=== PATIENT | male | born 1950 | race Caucasian/White ===

== ENCOUNTER 2019-08-29 09:12 | Inpatient (IN) ==
[~2019-08-29 09:12] MED LIST: DEXTROSE 50% 25 GM/50 ML VIAL IV PRN; GLUCAGON 1 MG VIAL IM PRN; NITROGLYCERIN SL 0.4 MG TABLET SL PRN; PHYTONADIONE 10 MG/1 ML AMP SUBCUT ONE
[2019-08-29 10:06] LABS: Basophils # 0.1 10*3/uL (0.0-0.2); Basophils % 1.1 % (0.0-0.8); Eosinophils # 0.3 10*3/uL (0.0-0.87); Eosinophils % 4.4 % (0.00-10.9); Hematocrit 47.8 VOL% (42.0-52.0); Hemoglobin 15.8 GM/DL (14.0-18.0); Immature Granulocytes % 0.5 %; Immature Granulocytes Absolute 0.04 #; Lymphocytes # 1.6 10*3/uL (1.4-4.0); Lymphocytes % 21.3 % (21.2-54.2); Mean Corpuscular HGB Conc 33.1 GM/DL (32-36); Mean Corpuscular Volume 90.7 FL (87-102); Mean Platelet Volume 10.7 FL (9.6-12.0); Monocytes % 9.7 % (1.7-12.7); Platelet Count 158 T/CUMM (130-400); Red Blood Count 5.27 MC/CUMM (3.8-5.5); Red Cell Distribution Width 13.6 % (9.3-17.3); White Blood Count 7.5 T/CUMM (4-12)
[2019-08-29 10:20] LABS: PT Patient Result 11.1 SECS (9.6-12.2)
[2019-08-29] MEDS: glipiZIDE 10 MG TABLET PO SCH ×2 (10:26→20:49)
[2019-08-29] MEDS: POTASSIUM CHLORIDE 20 MEQ TABLET PO SCH (10:27)
[2019-08-29] MEDS ORDERED: ZALEPLON 5 MG CAPSULE PO PRN (10:30)
[2019-08-29 10:35] LABS: Albumin 3.7 G/DL (3.4-5.0); Bilirubin,Total 0.8 MG/DL (0.2-1.0); Calcium 8.7 MG/DL (8.5-10.1); Osmolality,Calculated 283.4 MOS/KG (273-304); Total Protein 6.9 G/DL (6.4-8.3)
[2019-08-29] MEDS: OMEGA 3 ACID ETHYL ESTERS 1 GM CAPSULE PO SCH ×2 (13:26→20:50)
[2019-08-29] MEDS: LOSARTAN 50 MG TABLET PO SCH (13:26)
[2019-08-29] MEDS: CHLORHEXIDINE 0.12% ORAL RINSE 60 ML BOTTLE SWISH/SPIT SCH ×2 (13:27→20:50)
[2019-08-29 15:18] LABS: ABG Base Excess 2.4 MMOL/L (-2.5-2.5); ABG HCO3 26.5 MMOL/L (20-26); ABG Oxygen Saturation 96.8 % (95-100); ABG PCO2 42.2 MM HG (35-48); ABG PH 7.418 (7.35-7.45); ABG PO2 83.4 MM HG (80-95); ABG TCO2 22.8 MMOL/L (23-27)
[2019-08-29] MEDS: CHLORHEXIDINE 4% SOLN 118 ML BOTTLE TOP SCH ×2 (15:44→20:14)
[2019-08-29] MEDS: SODIUM CHLORIDE 0.9% 1,000 ML IV SCH (18:39)
[2019-08-29] MEDS ORDERED: ASCORBIC ACID 500 MG TABLET PO SCH (19:00)
[2019-08-29] MEDS ORDERED: ATORVASTATIN 20 MG TABLET PO SCH (19:00)
[2019-08-29] MEDS ORDERED: INSULIN GLARGINE 100 UNIT/ML SUBCUT SCH (19:00)
[2019-08-29] MEDS ORDERED: AMIODARONE 200 MG TABLET PO SCH (19:00)
[2019-08-29] MEDS: carvediloL 6.25 MG TABLET PO SCH (20:50)
[2019-08-29] MEDS ORDERED: sitaGLIPtin 100 MG TABLET PO SCH (21:00)
[2019-08-30] MEDS: CHLORHEXIDINE 4% SOLN 118 ML BOTTLE TOP SCH (04:12)
[2019-08-30] MEDS ORDERED: PAPAVERINE 60 MG/2 ML VIAL ONE (04:23)
[2019-08-30] MEDS ORDERED: VANCOMYCIN 500 MG VIAL ONE (04:24)
[2019-08-30] MEDS ORDERED: VANCOMYCIN 1,000 MG VIAL ONE (04:24)
[2019-08-30] MEDS ORDERED: DEXTROSE 10% 250 ML BAG IV PRN (05:21)
[2019-08-30] MEDS ORDERED: CEFUROXIME 1,500 MG VIAL ONE (05:52)
[2019-08-30] MEDS ORDERED: CALCIUM CHLORIDE 1,000 MG/10 ML VIAL IV ONE (06:00)
[2019-08-30] MEDS ORDERED: FAMOTIDINE 20 MG TABLET PO ONE (06:00)
[2019-08-30] MEDS ORDERED: DIAZEPAM 5 MG TABLET PO ONE (06:00)
[2019-08-30] MEDS ORDERED: SUFentanil 250 MCG/5 ML AMP ONE ×2 (06:00)
[2019-08-30] MEDS ORDERED: AMINOCAPROIC ACID 5,000 MG/20 ML VIAL ONE (06:01)
[2019-08-30] MEDS ORDERED: MIDAZOLAM 10 MG/2 ML VIAL ONE (06:01)
[2019-08-30] MEDS ORDERED: CEFUROXIME INJ 1,500 MG in SYRINGE 1 EACH IV ONE (07:00)
[2019-08-30] MEDS ORDERED: NITROPRUSSIDE 50 MG/2 ML VIAL ONE (07:34)
[2019-08-30] MEDS ORDERED: SODIUM BICARBONATE 50 MEQ/50 ML VIAL IV ONE ×2 (07:34→10:55)
[2019-08-30] MEDS ORDERED: PHENYLEPHRINE DRIP 40 MG/250 ML PREMIX IV ONE (07:34)
[2019-08-30] MEDS ORDERED: POTASSIUM CHLORIDE RIDER 100 ML IV ONE (07:35)
[2019-08-30] MEDS ORDERED: CALCIUM CHLORIDE 1,000 MG/10 ML SYRINGE IV ONE (07:35)
[2019-08-30 07:45] LABS: ABG Base Excess 2.2 MMOL/L (-2.5-2.5); ABG HCO3 26.4 MMOL/L (20-26); ABG Oxygen Saturation 99.7 % (95-100); ABG PCO2 45.8 MM HG (35-48); ABG PH 7.392 (7.35-7.45); ABG TCO2 23.7 MMOL/L (23-27); Glucose Heart Surgery 89 MG/DL (74-106); Hematocrit Heart Surgery 46.3 PERCENT (42-52); Hemoglobin Heart Surgery 15.1 G/DL (14.0-18.0); Ionized Calcium Arterial 1.15 MMOL/L (1.21-1.46); PCO2 Patient Temp Arterial 45.8 MMHG; PH Patient Temp Arterial 7.392; Patient Temperature 37 CELCIUS; Potassium Heart/CVR 3.6 MMOL/L (3.5-5.1); Sodium Heart/CVR 139 MMOL/L (135-145)
[2019-08-30] MEDS: SODIUM CHLORIDE 0.9% 1,000 ML IV SCH (08:05)
[2019-08-30] MEDS: carvediloL 6.25 MG TABLET PO SCH (08:05)
[2019-08-30] MEDS: CHLORHEXIDINE 0.12% ORAL RINSE 60 ML BOTTLE SWISH/SPIT SCH ×2 (08:06→23:56)
[2019-08-30] MEDS: OMEGA 3 ACID ETHYL ESTERS 1 GM CAPSULE PO SCH (08:06)
[2019-08-30] MEDS: glipiZIDE 10 MG TABLET PO SCH (08:06)
[2019-08-30] MEDS: POTASSIUM CHLORIDE 20 MEQ TABLET PO SCH (08:06)
[2019-08-30] MEDS: LOSARTAN 50 MG TABLET PO SCH (08:06)
[2019-08-30] MEDS ORDERED: ALBUMIN 5% 12.5 GM/250 ML VIAL IV ONE (08:48)
[2019-08-30 09:01] LABS: Apearance,Urine CLEAR (Clear); Bacteria,Urine Occasional /HPF (Few); Bilirubin,Urine Negative (Negative); Blood, Urine Negative (Negative); Glucose,Urine (UA) Negative (Negative); Ketones,Urine Negative (Negative); Nitrite,Urine Negative (Negative); Protein,Urine Negative; RBC,Urine <1 /HPF (0-4); Urine Color Straw (Yellow); Urine Specific Gravity 1.009 (1.001-1.035); Urine Urobilinogen < 2.0 EU/DL (0.2-1.0); WBC,Urine <1 /HPF (0-6)
[2019-08-30] MEDS ORDERED: PHENYLEPHRINE DRIP 20 MG/250 ML PREMIX IV ONE (09:07)
[2019-08-30] MEDS ORDERED: HEPARIN/NACL 0.9% 2 UNITS/ML 500 ML IV ONE (09:07)
[2019-08-30] MEDS ORDERED: MINERAL OIL/PETROLATUM OPH OINT 3.5 GM TUBE ONE (09:08)
[2019-08-30] MEDS ORDERED: NITROGLYCERIN DRIP 50 MG/250 ML BOTTLE IV ONE ×2 (09:08→12:23)
[2019-08-30 09:17] LABS: Hematocrit Heart Surgery 33.5 PERCENT (42-52); Hemoglobin Heart Surgery 10.9 G/DL (14.0-18.0); PCO2 Patient Temp Venous 37.5 MM HG; PH Patient Temp Venous 7.451; PO2 Patient Temp Venous 42.8 MM HG; Potassium Heart/CVR 4.2 MMOL/L (3.5-5.1); VBG Base Excess 2.3 MEQ/L (0-4); VBG HCO3 26.2 MEQ/L (24-28); VBG PCO2 41.3 MMHG (41-51); VBG PH 7.422; VBG PO2 49.1 MMHG (17-40)
[2019-08-30 10:29] LABS: Hematocrit Heart Surgery 38.2 PERCENT (42-52); Hemoglobin Heart Surgery 12.4 G/DL (14.0-18.0); PCO2 Patient Temp Venous 34.7 MM HG; PH Patient Temp Venous 7.501; PO2 Patient Temp Venous 38.7 MM HG; Potassium Heart/CVR 4.4 MMOL/L (3.5-5.1); VBG Base Excess 4.1 MEQ/L (0-4); VBG HCO3 27.7 MEQ/L (24-28); VBG Oxygen Saturation 80.1 %; VBG PCO2 34.7 MMHG (41-51); VBG PH 7.501; VBG PO2 38.7 MMHG (17-40)
[2019-08-30 10:29] LABS: PCO2 Patient Temp Venous 32.7 MM HG; PH Patient Temp Venous 7.511; PO2 Patient Temp Venous 41.4 MM HG; Potassium Heart/CVR 4.1 MMOL/L (3.5-5.1); VBG Base Excess 3.5 MEQ/L (0-4); VBG HCO3 27.4 MEQ/L (24-28); VBG Oxygen Saturation 87.8 %; VBG PH 7.481; VBG PO2 47.6 MMHG (17-40)
[2019-08-30 10:54] LABS: ABG Base Excess 2.7 MMOL/L (-2.5-2.5); ABG HCO3 26.8 MMOL/L (20-26); ABG Oxygen Saturation 98.4 % (95-100); ABG PH 7.477 (7.35-7.45); ABG PO2 94.4 MM HG (80-95); ABG TCO2 22.8 MMOL/L (23-27); Glucose Heart Surgery 164 MG/DL (74-106); Hematocrit Heart Surgery 37.3 PERCENT (42-52); Hemoglobin Heart Surgery 12.1 G/DL (14.0-18.0); Ionized Calcium Arterial 1.18 MMOL/L (1.21-1.46); PH Patient Temp Arterial 7.477; PO2 Patient Temp Arterial 94.4 MM HG; Patient Temperature 37 CELCIUS; Potassium Heart/CVR 3.9 MMOL/L (3.5-5.1); Sodium Heart/CVR 137 MMOL/L (135-145)
[2019-08-30] MEDS ORDERED: DEXTROSE 5% KCL 20 MEQ 20 MEQ/1,000 ML BAG IV ONE (10:55)
[2019-08-30] MEDS ORDERED: LIDOCAINE 2% 5 ML VIAL ONE (10:55)
[2019-08-30] MEDS ORDERED: MANNITOL 100 GM/500 ML BAG IV ONE (10:55)
[2019-08-30] MEDS ORDERED: ALBUMIN 25% 25 GM/100 ML VIAL IV ONE (10:56)
[2019-08-30] MEDS ORDERED: MAGNESIUM SULFATE 5 GM/10 ML VIAL IV ONE (10:56)
[2019-08-30] MEDS ORDERED: HEPARIN 10,000 UNIT/10 ML VIAL ONE (10:56)
[2019-08-30] MEDS ORDERED: PROTAMINE SULFATE 50 MG/5 ML VIAL IV ONE ×2 (10:56→12:08)
[2019-08-30] MEDS ORDERED: FUROSEMIDE 20 MG/2 ML VIAL ONE (10:56)
[2019-08-30] MEDS ORDERED: methylPREDNISolone SOD SUC 1,000 MG/8 ML VIAL ONE (10:56)
[2019-08-30] MEDS ORDERED: PROTAMINE SULFATE 250 MG/25 ML VIAL IV ONE (10:56)
[2019-08-30] MEDS ORDERED: MIDAZOLAM 10 MG/2 ML VIAL IV PRN (12:06)
[2019-08-30] MEDS ORDERED: MAGNESIUM SULF RIDER 4 GM in PREMIX 1 EACH IV PRN (12:06)
[2019-08-30] MEDS ORDERED: NITROPRUSSIDE 100 MG in DEXTROSE 5% 250 ML IV PRN (12:06)
[2019-08-30] MEDS ORDERED: MORPHINE 10 MG/1 ML VIAL IV PRN (12:06)
[2019-08-30] MEDS ORDERED: VECURONIUM 10 MG VIAL IV PRN ×2 (12:06)
[2019-08-30] MEDS ORDERED: INSULIN REGULAR 100 UNIT/ML IV PRN (12:06)
[2019-08-30] MEDS ORDERED: ONDANSETRON 4 MG/2 ML VIAL IV PRN (12:06)
[2019-08-30] MEDS ORDERED: LACTATED RINGERS 250 ML IV PRN (12:06)
[2019-08-30] MEDS ORDERED: PHENYLEPHRINE DRIP 40 MG/250 ML PREMIX IV PRN (12:06)
[2019-08-30] MEDS ORDERED: MAGNESIUM SULF RIDER 2 GM in PREMIX 1 EACH IV PRN (12:06)
[2019-08-30] MEDS ORDERED: DEXTROSE 50% 25 GM/50 ML VIAL IV PRN (12:06)
[2019-08-30] MEDS ORDERED: ACETAMINOPHEN 650 MG SUPP RECTAL PRN (12:06)
[2019-08-30] MEDS ORDERED: DEXTROSE 10% 25 GM/250 ML BAG IV PRN (12:06)
[2019-08-30] MEDS ORDERED: SODIUM CHLORIDE 0.45% 1,000 ML IV SCH ×2 (12:06)
[2019-08-30] MEDS ORDERED: INSULIN REGULAR 100 UNIT/ML IV ONE (12:06)
[2019-08-30] MEDS ORDERED: CALCIUM CHLORIDE 1,000 MG/10 ML SYRINGE IV PRN (12:06)
[2019-08-30] MEDS ORDERED: INSULIN REGULAR DRIP 100 ML IV SCH (12:06)
[2019-08-30] MEDS ORDERED: MIDAZOLAM 2 MG/2 ML VIAL IV PRN (12:06)
[2019-08-30] MEDS ORDERED: ALBUTEROL/IPRATROPIUM 3 ML NEB RESP TX PRN (12:07)
[2019-08-30] MEDS ORDERED: ETOMIDATE 40 MG/20 ML VIAL IV ONE (12:11)
[2019-08-30] MEDS ORDERED: SEVOFLURANE 1 UNIT/15 MINUTE INH ONE (12:11)
[2019-08-30] MEDS ORDERED: SODIUM CHLORIDE 0.9% 100 ML IV ONE (12:12)
[2019-08-30] MEDS ORDERED: SODIUM CHLORIDE 0.9% 1,000 ML IV ONE (12:12)
[2019-08-30] MEDS ORDERED: SODIUM CHLORIDE 0.9% 250 ML IV ONE (12:12)
[2019-08-30] MEDS ORDERED: PHENYLEPHRINE 1 MG/10 ML SYRINGE IV ONE (12:12)
[2019-08-30 12:33] LABS: ABG Oxygen Saturation 96.2 % (95-100); ABG PCO2 36.7 MM HG (35-48); ABG PH 7.467 (7.35-7.45); ABG PO2 73.4 MM HG (80-95); ABG TCO2 23.3 MMOL/L (23-27); Glucose Heart Surgery 146 MG/DL (74-106); Hematocrit Heart Surgery 37.6 PERCENT (42-52); Hemoglobin Heart Surgery 12.2 G/DL (14.0-18.0); Potassium Heart/CVR 3.6 MMOL/L (3.5-5.1)
[2019-08-30] MEDS ORDERED: NITROGLYCERIN DRIP 50 MG/250 ML BOTTLE IV PRN ×2 (12:37→13:02)
[2019-08-30 12:38] LABS: Basophils % 0.4 % (0.0-0.8); Eosinophils # 0.1 10*3/uL (0.0-0.87); Eosinophils % 0.8 % (0.00-10.9); Hematocrit 34.8 VOL% (42.0-52.0); Hemoglobin 11.8 GM/DL (14.0-18.0); Immature Granulocytes % 0.7 %; Immature Granulocytes Absolute 0.06 #; Lymphocytes # 0.9 10*3/uL (1.4-4.0); Mean Corpuscular HGB Conc 33.9 GM/DL (32-36); Mean Corpuscular Volume 89.9 FL (87-102); Mean Platelet Volume 10.9 FL (9.6-12.0); Monocytes % 5.8 % (1.7-12.7); Neutrophils % 81.3 % (38.7-73.9); Platelet Count 151 T/CUMM (130-400); Red Blood Count 3.87 MC/CUMM (3.8-5.5); Red Cell Distribution Width 13.4 % (9.3-17.3); White Blood Count 8.4 T/CUMM (4-12)
[2019-08-30] MEDS: POTASSIUM CHLORIDE RIDER 20 MEQ in PREMIX 1 EACH IV PRN ×3 (12:47→22:30)
[2019-08-30 12:50] LABS: PT Patient Result 11.3 SECS (9.6-12.2); Partial Thromboplastin Time 25.8 SECS (20.8-36.0)
[2019-08-30 12:55] LABS: Albumin 3.4 G/DL (3.4-5.0); Bilirubin,Total 1.4 MG/DL (0.2-1.0); Calcium 8.9 MG/DL (8.5-10.1); Osmolality,Calculated 291.7 MOS/KG (273-304); Total Protein 5.8 G/DL (6.4-8.3)
[2019-08-30] MEDS: ALBUMIN 5% 12.5 GM in PREMIX 1 EACH IV PRN ×4 (13:22→18:35)
[2019-08-30] MEDS: KETOROLAC 30 MG/1 ML VIAL IV SCH ×3 (13:29→23:56)
[2019-08-30 13:51] LABS: ABG Base Excess 1.4 MMOL/L (-2.5-2.5); ABG HCO3 25.7 MMOL/L (20-26); ABG Oxygen Saturation 98.4 % (95-100); ABG PH 7.436 (7.35-7.45); ABG TCO2 22.5 MMOL/L (23-27); Glucose Heart Surgery 159 MG/DL (74-106); Hematocrit Heart Surgery 37.2 PERCENT (42-52); Hemoglobin Heart Surgery 12.1 G/DL (14.0-18.0); Potassium Heart/CVR 4.8 MMOL/L (3.5-5.1)
[2019-08-30] MEDS: LACTATED RINGERS 1,000 ML IV PRN ×3 (14:12→18:28)
[2019-08-30] MEDS: POTASSIUM CHLORIDE RIDER 10 MEQ in PREMIX 1 EACH IV PRN ×3 (14:13→23:30)
[2019-08-30] MEDS: ALBUTEROL/IPRATROPIUM 3 ML NEB RESP TX SCH ×3 (14:49→23:00)
[2019-08-30 15:56] LABS: ABG HCO3 24.4 MMOL/L (20-26); ABG PO2 95.5 MM HG (80-95); ABG TCO2 21.3 MMOL/L (23-27); Glucose Heart Surgery 178 MG/DL (74-106); Hematocrit Heart Surgery 34.7 PERCENT (42-52); Hemoglobin Heart Surgery 11.3 G/DL (14.0-18.0); Potassium Heart/CVR 3.7 MMOL/L (3.5-5.1)
[2019-08-30 16:17] LABS: CKMB % 5.7 %
[2019-08-30 16:19] LABS: Troponin I 2.59 NG/ML (0.00-0.045)
[2019-08-30] MEDS: MORPHINE 4 MG/1 ML VIAL IV PRN ×2 (17:21→21:01)
[2019-08-30 18:24] LABS: ABG Base Excess 0.4 MMOL/L (-2.5-2.5); ABG HCO3 24.7 MMOL/L (20-26); ABG PCO2 39.8 MM HG (35-48); ABG PH 7.406 (7.35-7.45); ABG PO2 76.8 MM HG (80-95); ABG TCO2 22.6 MMOL/L (23-27); Glucose Heart Surgery 141 MG/DL (74-106); Hematocrit Heart Surgery 31.9 PERCENT (42-52); Hemoglobin Heart Surgery 10.3 G/DL (14.0-18.0); Potassium Heart/CVR 4.4 MMOL/L (3.5-5.1)
[2019-08-30] MEDS: hydrALAZINE 20 MG/1 ML VIAL IV PRN (18:25)
[2019-08-30] MEDS: CEFUROXIME INJ 1,500 MG in SYRINGE 1 EACH IV SCH (19:41)
[2019-08-30 20:56] LABS: ABG Base Excess -0.1 MMOL/L (-2.5-2.5); ABG HCO3 24.4 MMOL/L (20-26); ABG PH 7.384 (7.35-7.45); ABG PO2 85.9 MM HG (80-95); ABG TCO2 22.6 MMOL/L (23-27); Glucose Heart Surgery 142 MG/DL (74-106); Hematocrit Heart Surgery 33.1 PERCENT (42-52); Hemoglobin Heart Surgery 10.7 G/DL (14.0-18.0); Potassium Heart/CVR 3.7 MMOL/L (3.5-5.1)
[2019-08-30 21:45] LABS: Troponin I 3.23 NG/ML (0.00-0.045)
[2019-08-30 22:17] LABS: ABG Base Excess 0.5 MMOL/L (-2.5-2.5); ABG HCO3 24.8 MMOL/L (20-26); ABG Oxygen Saturation 94.7 % (95-100); ABG PCO2 42.9 MM HG (35-48); ABG PH 7.384 (7.35-7.45); ABG PO2 71.3 MM HG (80-95); ABG TCO2 23.1 MMOL/L (23-27); Glucose Heart Surgery 140 MG/DL (74-106); Hematocrit Heart Surgery 33.3 PERCENT (42-52); Hemoglobin Heart Surgery 10.8 G/DL (14.0-18.0); Potassium Heart/CVR 3.7 MMOL/L (3.5-5.1)
[2019-08-31] MEDS: ALBUTEROL/IPRATROPIUM 3 ML NEB RESP TX SCH ×2 (03:30→08:09)
[2019-08-31 04:25] LABS: ABG Base Excess 0.1 MMOL/L (-2.5-2.5); ABG HCO3 24.4 MMOL/L (20-26); ABG Oxygen Saturation 94.6 % (95-100); ABG PCO2 41.8 MM HG (35-48); ABG PH 7.387 (7.35-7.45); ABG PO2 70.1 MM HG (80-95); ABG TCO2 22.6 MMOL/L (23-27); Basophils % 0.1 % (0.0-0.8); Glucose Heart Surgery 104 MG/DL (74-106); Hematocrit 32.2 VOL% (42.0-52.0); Hematocrit Heart Surgery 33.6 PERCENT (42-52); Hemoglobin 10.7 GM/DL (14.0-18.0); Hemoglobin Heart Surgery 10.9 G/DL (14.0-18.0); Immature Granulocytes % 0.4 %; Immature Granulocytes Absolute 0.06 #; Lymphocytes # 0.9 10*3/uL (1.4-4.0); Lymphocytes % 6.3 % (21.2-54.2); Mean Corpuscular HGB Conc 33.2 GM/DL (32-36); Mean Corpuscular Volume 92.5 FL (87-102); Mean Platelet Volume 11.2 FL (9.6-12.0); Monocytes % 4.7 % (1.7-12.7); Neutrophils % 88.5 % (38.7-73.9); Platelet Count 134 T/CUMM (130-400); Potassium Heart/CVR 4.2 MMOL/L (3.5-5.1); Red Blood Count 3.48 MC/CUMM (3.8-5.5); Red Cell Distribution Width 13.9 % (9.3-17.3); White Blood Count 14.3 T/CUMM (4-12)
[2019-08-31 04:48] LABS: Albumin 3.7 G/DL (3.4-5.0); Bilirubin,Direct 0.34 MG/DL (0.0-0.20); Bilirubin,Total 0.9 MG/DL (0.2-1.0); Osmolality,Calculated 285.1 MOS/KG (273-304); Total Protein 6.2 G/DL (6.4-8.3)
[2019-08-31 05:00] LABS: CKMB % 8.5 %
[2019-08-31 05:02] LABS: Troponin I 3.42 NG/ML (0.00-0.045)
[2019-08-31] MEDS: KETOROLAC 30 MG/1 ML VIAL IV SCH ×3 (05:11→17:10)
[2019-08-31] MEDS: POTASSIUM CHLORIDE RIDER 20 MEQ in PREMIX 1 EACH IV PRN (05:12)
[2019-08-31] MEDS: LACTATED RINGERS 1,000 ML IV PRN (06:09)
[2019-08-31] MEDS: hydrALAZINE 20 MG/1 ML VIAL IV PRN ×2 (06:43→07:49)
[2019-08-31] MEDS ORDERED: GLUCAGON 1 MG VIAL IM PRN (06:54)
[2019-08-31] MEDS ORDERED: FUROSEMIDE 40 MG/4 ML VIAL IV ONE (07:01)
[2019-08-31] MEDS: CEFUROXIME INJ 1,500 MG in SYRINGE 1 EACH IV SCH (07:11)
[2019-08-31] MEDS: CHLORHEXIDINE 0.12% ORAL RINSE 60 ML BOTTLE SWISH/SPIT SCH (08:11)
[2019-08-31] MEDS ORDERED: PHYTONADIONE 10 MG/1 ML AMP SUBCUT ONE (09:33)
[2019-08-31] MEDS ORDERED: INSULIN REGULAR 100 UNIT/ML SUBCUT SCH (10:00)
[2019-08-31] MEDS: INSULIN REGULAR 100 UNIT/ML SUBCUT PRN ×3 (12:18→21:27)
[2019-08-31] MEDS ORDERED: ALUMINUM/MAGNES/SIMETH MAX STR 30 ML UDCUP PO PRN (12:20)
[2019-08-31] MEDS ORDERED: ATORVASTATIN 20 MG TABLET PO SCH (19:00)
[2019-08-31] MEDS ORDERED: AMIODARONE 200 MG TABLET PO SCH (19:00)
[2019-08-31] MEDS ORDERED: ASCORBIC ACID 500 MG TABLET PO SCH (19:00)
[2019-08-31] MEDS ORDERED: INSULIN GLARGINE 100 UNIT/ML SUBCUT SCH (19:00)
[2019-08-31] MEDS: ASPIRIN 325 MG TABLET PO SCH (20:54)
[2019-08-31] MEDS: sitaGLIPtin 100 MG TABLET PO SCH (20:55)
[2019-08-31] MEDS: metFORMIN 500 MG TABLET PO SCH (20:55)
[2019-08-31] MEDS: AMIODARONE 200 MG TABLET PO SCH (20:55)
[2019-08-31] MEDS: OMEGA 3 ACID ETHYL ESTERS 1 GM CAPSULE PO SCH (20:55)
[2019-08-31] MEDS: glipiZIDE 10 MG TABLET PO SCH (20:55)
[2019-08-31] MEDS: carvediloL 6.25 MG TABLET PO SCH (20:56)
[2019-09-01] MEDS ORDERED: FUROSEMIDE 40 MG/4 ML VIAL IV ONE (05:11)
[2019-09-01 08:36] LABS: Basophils % 0.1 % (0.0-0.8); Hematocrit 32.8 VOL% (42.0-52.0); Hemoglobin 10.4 GM/DL (14.0-18.0); Immature Granulocytes % 1.2 %; Immature Granulocytes Absolute 0.21 #; Lymphocytes # 0.8 10*3/uL (1.4-4.0); Lymphocytes % 4.6 % (21.2-54.2); Mean Corpuscular HGB Conc 31.7 GM/DL (32-36); Mean Corpuscular Volume 95.1 FL (87-102); Mean Platelet Volume 11.5 FL (9.6-12.0); Monocytes % 8.9 % (1.7-12.7); Neutrophils % 85.2 % (38.7-73.9); Platelet Count 131 T/CUMM (130-400); Red Blood Count 3.45 MC/CUMM (3.8-5.5); Red Cell Distribution Width 14.5 % (9.3-17.3)
[2019-09-01 08:48] LABS: Albumin 3.2 G/DL (3.4-5.0); Bilirubin,Direct 0.21 MG/DL (0.0-0.20); Bilirubin,Total 1.3 MG/DL (0.2-1.0); Calcium 7.2 MG/DL (8.5-10.1); Osmolality,Calculated 297.1 MOS/KG (273-304); Total Protein 5.7 G/DL (6.4-8.3)
[2019-09-01 08:56] LABS: Band Neutrophils 7 % (0-10); Lymphocytes 6 % (20-55); Platelet Estimate Adequate; Segmented Neutrophils 83 % (50-85); Total Cells Counted 100
[2019-09-01 08:57] LABS: Anisocytosis Slight; Macrocytosis Slight
[2019-09-01] MEDS: INSULIN REGULAR 100 UNIT/ML SUBCUT PRN ×2 (09:27→13:09)
[2019-09-01] MEDS: OMEGA 3 ACID ETHYL ESTERS 1 GM CAPSULE PO SCH ×2 (09:44→21:50)
[2019-09-01] MEDS: LOSARTAN 50 MG TABLET PO SCH (09:44)
[2019-09-01] MEDS: DOCUSATE SODIUM 100 MG CAPSULE PO SCH (09:44)
[2019-09-01] MEDS: carvediloL 6.25 MG TABLET PO SCH ×2 (09:44→21:51)
[2019-09-01] MEDS: glipiZIDE 10 MG TABLET PO SCH ×2 (09:44→21:50)
[2019-09-01] MEDS: metFORMIN 500 MG TABLET PO SCH ×2 (09:44→21:51)
[2019-09-01] MEDS: ASCORBIC ACID 500 MG TABLET PO SCH (21:50)
[2019-09-01] MEDS: ASPIRIN 325 MG TABLET PO SCH (21:50)
[2019-09-01] MEDS: sitaGLIPtin 100 MG TABLET PO SCH (21:51)
[2019-09-01] MEDS: AMIODARONE 200 MG TABLET PO SCH (21:51)
[2019-09-01] MEDS: ATORVASTATIN 20 MG TABLET PO SCH (21:51)
[2019-09-01] MEDS: INSULIN GLARGINE 100 UNIT/ML SUBCUT SCH (21:53)
[2019-09-01] MEDS: INSULIN REGULAR 100 UNIT/ML SUBCUT SCH (21:54)
[2019-09-02] MEDS: INSULIN REGULAR 100 UNIT/ML SUBCUT SCH ×5 (08:10→21:20)
[2019-09-02] MEDS: DOCUSATE SODIUM 100 MG CAPSULE PO SCH ×2 (08:50→08:59)
[2019-09-02] MEDS: carvediloL 6.25 MG TABLET PO SCH ×3 (08:50→21:16)
[2019-09-02] MEDS: glipiZIDE 10 MG TABLET PO SCH ×3 (08:51→21:20)
[2019-09-02] MEDS: OMEGA 3 ACID ETHYL ESTERS 1 GM CAPSULE PO SCH ×3 (08:51→21:16)
[2019-09-02] MEDS: metFORMIN 500 MG TABLET PO SCH ×3 (08:51→21:19)
[2019-09-02] MEDS: LOSARTAN 50 MG TABLET PO SCH ×2 (08:51→08:59)
[2019-09-02] MEDS ORDERED: GLUCAGON 1 MG VIAL ONE (13:36)
[2019-09-02] MEDS ORDERED: GLUCAGON 1 MG VIAL IV PRN (13:51)
[2019-09-02] MEDS: ATORVASTATIN 20 MG TABLET PO SCH (21:17)
[2019-09-02] MEDS: ASCORBIC ACID 500 MG TABLET PO SCH (21:17)
[2019-09-02] MEDS: AMIODARONE 200 MG TABLET PO SCH (21:17)
[2019-09-02] MEDS: ASPIRIN 325 MG TABLET PO SCH (21:17)
[2019-09-02] MEDS: INSULIN GLARGINE 100 UNIT/ML SUBCUT SCH (21:20)
[2019-09-02] MEDS: sitaGLIPtin 100 MG TABLET PO SCH (21:20)
[2019-09-03] MEDS: INSULIN REGULAR 100 UNIT/ML SUBCUT SCH (07:59)
[2019-09-03 08:02] VITALS: BP 147/77
[2019-09-03] MEDS: DOCUSATE SODIUM 100 MG CAPSULE PO SCH (09:47)
[2019-09-03] MEDS: LOSARTAN 50 MG TABLET PO SCH (09:47)
[2019-09-03] MEDS: carvediloL 6.25 MG TABLET PO SCH (09:47)
[2019-09-03] MEDS: metFORMIN 500 MG TABLET PO SCH (09:47)
[2019-09-03] MEDS: OMEGA 3 ACID ETHYL ESTERS 1 GM CAPSULE PO SCH (09:47)
[2019-09-03] MEDS: glipiZIDE 10 MG TABLET PO SCH (09:47)
== END 2019-09-03 11:45 | disposition home or self-care (01) | DRG 236 ==
LOC: INTOOBSV 09:12 → N.4E 09:12 → N.CVR 08-30 11:40 → N.TELES 08-31 10:45

== ENCOUNTER 2019-10-07 06:12 | Inpatient (IN) ==
[2019-10-07] MEDS ORDERED: FUROSEMIDE 100 MG/10 ML VIAL ONE (06:26)
[2019-10-07] MEDS ORDERED: NITROGLYCERIN SL 0.4 MG TABLET SL ONE (06:27)
[2019-10-07] MEDS ORDERED: FUROSEMIDE 100 MG/10 ML VIAL IV STA (06:30)
[2019-10-07] MEDS ORDERED: NITROGLYCERIN SL 0.4 MG TABLET SL STA (06:31)
[2019-10-07 06:38] LABS: ABG HCO3 25.1 MMOL/L (20-26); ABG Oxygen Saturation 89.9 % (95-100); ABG PCO2 47.1 MM HG (35-48); ABG PH 7.344 (7.35-7.45); ABG PO2 60.8 MM HG (80-95); ABG TCO2 26.5 MMOL/L (23-27)
[2019-10-07] MEDS: niCARdipine INJ 25 MG in SODIUM CHLORIDE 0.9% 240 ML IV SCH (06:39)
[2019-10-07 06:45] LABS: Basophils # 0.1 10*3/uL (0.0-0.2); Basophils % 0.5 % (0.0-0.8); Eosinophils # 0.6 10*3/uL (0.0-0.87); Eosinophils % 3.8 % (0.00-10.9); Hematocrit 40.2 VOL% (42.0-52.0); Hemoglobin 12.6 GM/DL (14.0-18.0); Immature Granulocytes % 0.6 %; Immature Granulocytes Absolute 0.09 #; Lymphocytes # 2.6 10*3/uL (1.4-4.0); Lymphocytes % 17.6 % (21.2-54.2); Mean Corpuscular HGB Conc 31.3 GM/DL (32-36); Mean Corpuscular Volume 86.3 FL (87-102); Mean Platelet Volume 10.4 FL (9.6-12.0); Monocytes % 7.2 % (1.7-12.7); Neutrophils % 70.3 % (38.7-73.9); Platelet Count 283 T/CUMM (130-400); Red Blood Count 4.66 MC/CUMM (3.8-5.5); Red Cell Distribution Width 14.1 % (9.3-17.3); White Blood Count 14.7 T/CUMM (4-12)
[2019-10-07 07:12] LABS: Albumin 3.6 G/DL (3.4-5.0); Calcium 8.7 MG/DL (8.5-10.1); Osmolality,Calculated 284.1 MOS/KG (273-304); Total Protein 7.4 G/DL (6.4-8.3)
[2019-10-07 07:15] LABS: Apearance,Urine CLEAR (Clear); Bilirubin,Urine Negative (Negative); Blood, Urine Negative (Negative); Glucose,Urine (UA) 50 mg/dL (Negative); Ketones,Urine Negative (Negative); Nitrite,Urine Negative (Negative); Protein,Urine Negative; RBC,Urine 1 /HPF (0-4); Urine Color Straw (Yellow); Urine Specific Gravity 1.009 (1.001-1.035); Urine Urobilinogen < 2.0 EU/DL (0.2-1.0); WBC,Urine 1 /HPF (0-6)
[2019-10-07 07:22] LABS: INR 4.1
[2019-10-07 07:26] LABS: PT Patient Result 43.9 SECS (9.6-12.2)
[2019-10-07] MEDS ORDERED: MAGNESIUM SULF RIDER 2 GM in PREMIX 1 EACH IV PRN (08:14)
[2019-10-07] MEDS ORDERED: DEXTROSE 10% 25 GM/250 ML BAG IV PRN (08:14)
[2019-10-07] MEDS ORDERED: GLUCAGON 1 MG VIAL IM PRN (08:14)
[2019-10-07] MEDS ORDERED: MORPHINE 4 MG/1 ML VIAL IV PRN (08:14)
[2019-10-07] MEDS ORDERED: ONDANSETRON 4 MG/2 ML VIAL IV PRN (08:14)
[2019-10-07] MEDS ORDERED: MAGNESIUM SULF RIDER 4 GM in PREMIX 1 EACH IV PRN (08:14)
[2019-10-07] MEDS ORDERED: ACETAMINOPHEN 325 MG TABLET PO PRN (08:14)
[2019-10-07] MEDS ORDERED: NICOTINE 21 MG/24 HR PATCH TRANSDERM PRN (08:14)
[2019-10-07] MEDS ORDERED: ALBUTEROL 2.5 MG/3 ML NEB RESP TX PRN (08:14)
[2019-10-07] MEDS: PANTOPRAZOLE 40 MG TABLET PO SCH (09:34)
[2019-10-07] MEDS: INSULIN LISPRO 100 UNIT/ML SUBCUT SCH ×3 (12:27→21:57)
[2019-10-07] MEDS: LOSARTAN 50 MG TABLET PO SCH (12:54)
[2019-10-07] MEDS: POTASSIUM CHLORIDE 20 MEQ TABLET PO PRN ×2 (12:55→15:31)
[2019-10-07] MEDS ORDERED: AZITHROMYCIN INJ 500 MG in SODIUM CHLORIDE 0.9% 250 ML IV SCH (14:30)
[2019-10-07] MEDS ORDERED: cefTRIAXone 1,000 MG in SYRINGE 1 EACH IV SCH (14:30)
[2019-10-07] MEDS: FUROSEMIDE 40 MG/4 ML VIAL IV SCH (15:31)
[2019-10-07] MEDS ORDERED: WARFARIN 4 MG TABLET PO SCH (18:00)
[2019-10-07] MEDS ORDERED: AMIODARONE 200 MG TABLET PO SCH (21:00)
[2019-10-07] MEDS: ATORVASTATIN 40 MG TABLET PO SCH (21:55)
[2019-10-07] MEDS: carvediloL 12.5 MG TABLET PO SCH (21:56)
[2019-10-07] MEDS: ASCORBIC ACID 500 MG TABLET PO SCH (21:56)
[2019-10-08 04:14] LABS: Allen Test Positive; Pt O2 Delivery Device Other
[2019-10-08 04:15] LABS: ABG Base Excess 7.3 MMOL/L (-2.5-2.5); ABG HCO3 31.1 MMOL/L (20-26); ABG Oxygen Saturation 98.4 % (95-100); ABG PCO2 47.1 MM HG (35-48); ABG PH 7.447 (7.35-7.45)
[2019-10-08 04:41] LABS: Basophils % 0.3 % (0.0-0.8); Eosinophils # 0.3 10*3/uL (0.0-0.87); Eosinophils % 2.3 % (0.00-10.9); Hematocrit 33.9 VOL% (42.0-52.0); Hemoglobin 10.7 GM/DL (14.0-18.0); Immature Granulocytes % 0.4 %; Immature Granulocytes Absolute 0.05 #; Lymphocytes # 1.8 10*3/uL (1.4-4.0); Lymphocytes % 15.4 % (21.2-54.2); Mean Corpuscular HGB Conc 31.6 GM/DL (32-36); Mean Corpuscular Volume 84.3 FL (87-102); Mean Platelet Volume 10.8 FL (9.6-12.0); Monocytes % 9.8 % (1.7-12.7); Neutrophils % 71.8 % (38.7-73.9); Platelet Count 228 T/CUMM (130-400); Red Blood Count 4.02 MC/CUMM (3.8-5.5); Red Cell Distribution Width 14.4 % (9.3-17.3); White Blood Count 11.5 T/CUMM (4-12)
[2019-10-08 05:00] LABS: INR 2.6
[2019-10-08 05:06] LABS: PT Patient Result 28.4 SECS (9.6-12.2)
[2019-10-08 05:23] LABS: Bilirubin,Total 1.2 MG/DL (0.2-1.0); Calcium 8.1 MG/DL (8.5-10.1); Osmolality,Calculated 283.8 MOS/KG (273-304); Thyroid Stimulating Hormone 1.01 uIU/ml (0.358-3.74); Total Protein 6.4 G/DL (6.4-8.3)
[2019-10-08] MEDS: POTASSIUM CHLORIDE 20 MEQ TABLET PO PRN ×4 (06:35→14:41)
[2019-10-08] MEDS: INSULIN LISPRO 100 UNIT/ML SUBCUT SCH ×4 (07:36→22:24)
[2019-10-08] MEDS: niCARdipine INJ 25 MG in SODIUM CHLORIDE 0.9% 240 ML IV SCH (07:36)
[2019-10-08] MEDS: carvediloL 12.5 MG TABLET PO SCH (08:51)
[2019-10-08] MEDS: LEVOFLOXACIN 750 MG TABLET PO SCH (08:51)
[2019-10-08] MEDS: PANTOPRAZOLE 40 MG TABLET PO SCH (08:51)
[2019-10-08] MEDS: ASCORBIC ACID 500 MG TABLET PO SCH ×2 (08:51→22:36)
[2019-10-08] MEDS: FUROSEMIDE 40 MG/4 ML VIAL IV SCH (08:52)
[2019-10-08] MEDS: LOSARTAN 50 MG TABLET PO SCH (08:52)
[2019-10-08] MEDS ORDERED: FUROSEMIDE 100 MG/10 ML VIAL IV SCH (09:00)
[2019-10-08] MEDS ORDERED: FUROSEMIDE 20 MG/2 ML VIAL IV ONE (10:48)
[2019-10-08] MEDS: METOPROLOL TARTRATE 50 MG TABLET PO SCH ×2 (11:29→22:36)
[2019-10-08] MEDS ORDERED: WARFARIN 3 MG TABLET PO SCH (18:00)
[2019-10-08] MEDS: ATORVASTATIN 40 MG TABLET PO SCH (22:37)
[2019-10-09 04:54] LABS: Basophils % 0.4 % (0.0-0.8); Eosinophils # 0.4 10*3/uL (0.0-0.87); Eosinophils % 3.9 % (0.00-10.9); Hematocrit 35.4 VOL% (42.0-52.0); Hemoglobin 11.4 GM/DL (14.0-18.0); Immature Granulocytes % 0.5 %; Immature Granulocytes Absolute 0.05 #; Lymphocytes # 1.7 10*3/uL (1.4-4.0); Lymphocytes % 16.1 % (21.2-54.2); Mean Corpuscular HGB Conc 32.2 GM/DL (32-36); Mean Corpuscular Volume 84.1 FL (87-102); Mean Platelet Volume 10.7 FL (9.6-12.0); Monocytes % 9.9 % (1.7-12.7); Neutrophils % 69.2 % (38.7-73.9); Platelet Count 251 T/CUMM (130-400); Red Blood Count 4.21 MC/CUMM (3.8-5.5); Red Cell Distribution Width 14.5 % (9.3-17.3); White Blood Count 10.6 T/CUMM (4-12)
[2019-10-09 05:01] LABS: INR 2.4
[2019-10-09 05:22] LABS: PT Patient Result 26.2 SECS (9.6-12.2)
[2019-10-09 05:28] LABS: Albumin 2.9 G/DL (3.4-5.0); Calcium 8.6 MG/DL (8.5-10.1); Osmolality,Calculated 283.3 MOS/KG (273-304); Total Protein 6.3 G/DL (6.4-8.3)
[2019-10-09] MEDS: niCARdipine INJ 25 MG in SODIUM CHLORIDE 0.9% 240 ML IV SCH (07:18)
[2019-10-09] MEDS: LEVOFLOXACIN 750 MG TABLET PO SCH (08:31)
[2019-10-09] MEDS: ASCORBIC ACID 500 MG TABLET PO SCH ×2 (08:31→21:42)
[2019-10-09] MEDS: FUROSEMIDE 100 MG/10 ML VIAL IV SCH (08:31)
[2019-10-09] MEDS: METOPROLOL TARTRATE 50 MG TABLET PO SCH ×2 (08:31→21:41)
[2019-10-09] MEDS: PANTOPRAZOLE 40 MG TABLET PO SCH (08:32)
[2019-10-09] MEDS: INSULIN LISPRO 100 UNIT/ML SUBCUT SCH ×5 (08:32→21:42)
[2019-10-09] MEDS: LOSARTAN 50 MG TABLET PO SCH (08:32)
[2019-10-09] MEDS: POTASSIUM CHLORIDE 20 MEQ TABLET PO PRN ×2 (08:32→11:33)
[2019-10-09] MEDS ORDERED: AZITHROMYCIN 250 MG TABLET PO SCH (09:00)
[2019-10-09] MEDS: ATORVASTATIN 40 MG TABLET PO SCH (21:41)
[2019-10-10 07:02] LABS: Basophils # 0.1 10*3/uL (0.0-0.2); Basophils % 0.6 % (0.0-0.8); Eosinophils # 0.4 10*3/uL (0.0-0.87); Hematocrit 36.9 VOL% (42.0-52.0); Hemoglobin 11.6 GM/DL (14.0-18.0); Immature Granulocytes % 0.6 %; Immature Granulocytes Absolute 0.05 #; Lymphocytes # 1.6 10*3/uL (1.4-4.0); Lymphocytes % 17.6 % (21.2-54.2); Mean Corpuscular HGB Conc 31.4 GM/DL (32-36); Mean Corpuscular Volume 84.2 FL (87-102); Mean Platelet Volume 10.5 FL (9.6-12.0); Monocytes % 10.1 % (1.7-12.7); Neutrophils % 66.1 % (38.7-73.9); Platelet Count 240 T/CUMM (130-400); Red Blood Count 4.38 MC/CUMM (3.8-5.5); Red Cell Distribution Width 14.6 % (9.3-17.3); White Blood Count 8.8 T/CUMM (4-12)
[2019-10-10 07:13] LABS: INR 2.7
[2019-10-10 07:15] LABS: PT Patient Result 29.1 SECS (9.6-12.2)
[2019-10-10 07:26] LABS: Albumin 2.9 G/DL (3.4-5.0); Bilirubin,Total 1.6 MG/DL (0.2-1.0); Calcium 8.9 MG/DL (8.5-10.1); Osmolality,Calculated 286.1 MOS/KG (273-304); Total Protein 6.3 G/DL (6.4-8.3)
[2019-10-10] MEDS: niCARdipine INJ 25 MG in SODIUM CHLORIDE 0.9% 240 ML IV SCH (07:35)
[2019-10-10] MEDS: INSULIN LISPRO 100 UNIT/ML SUBCUT SCH ×2 (07:36→14:05)
[2019-10-10] MEDS: FUROSEMIDE 100 MG/10 ML VIAL IV SCH (08:24)
[2019-10-10] MEDS: POTASSIUM CHLORIDE 20 MEQ TABLET PO PRN (08:25)
[2019-10-10] MEDS: LOSARTAN 50 MG TABLET PO SCH (08:25)
[2019-10-10] MEDS: LEVOFLOXACIN 750 MG TABLET PO SCH (08:25)
[2019-10-10] MEDS: ASCORBIC ACID 500 MG TABLET PO SCH (08:25)
[2019-10-10] MEDS: PANTOPRAZOLE 40 MG TABLET PO SCH (08:25)
[2019-10-10] MEDS: METOPROLOL TARTRATE 50 MG TABLET PO SCH (08:25)
[2019-10-10 08:31] VITALS: BP 139/94
[2019-10-10] MEDS ORDERED: FUROSEMIDE 40 MG TABLET PO SCH (09:00)
== END 2019-10-10 12:44 | disposition home or self-care (01) | DRG 291 ==
LOC: N.ED 06:12 → N.EDINP 08:14 → N.CC 09:17 → N.TELES 10-08 15:55
PROVIDERS: ADMIT Emergency Medicine; ATTEND Emergency Medicine